=== PATIENT | male | born 1970 | race Caucasian/White ===

== ENCOUNTER 2020-06-12 10:56 | Inpatient (IN) | payer OTHER ==
[~2020-06-12] VITALS: Ht 180.3 cm; Wt 106.1 kg
[2020-06-12 11:56] VITALS: Ht 180.3 cm; Wt 106.1 kg
--- NOTE | 2020-06-12 13:00 | NUR ---
ANCEF INFUSION STARTED AND NS 1 L BOLUS INFUSING WELL. PT LYING IN BED NO DISTRESS WILL MONITOR
[2020-06-12 13:06] LABS: PLATELET COUNT 207 x10^3mcL (130-400); RED CELL DISTRIBUTION WIDTH 13.6 % (11.5-14.5)
[2020-06-12 14:05] LABS: SODIUM SERUM 130 mmol/L (136-145)
[2020-06-12 14:06] LABS: ALBUMIN 2.7 g/dL (3.4-5.0); CALCIUM 9.3 mg/dL (8.5-10.1); CARBON DIOXIDE 22.9 mmol/L (21-32); CHLORIDE SERUM 95 mmol/L (98-107); GFR1 > 60 mL/min; GLUCOSE SERUM 379 mg/dL (74-106); POTASSIUM SERUM 3.7 mmol/L (3.5-5.1); TOTAL PROTEIN, SERUM 7.8 g/dL (6.4-8.2)
[2020-06-12 14:07] LABS: ALKALINE PHOSPHATASE 123 U/L (46-116); ALT/SGPT 17 U/L (16-63); AST/SGOT 5 U/L (15-37)
--- NOTE | 2020-06-12 14:22 | NUR ---
PT BACK FROM XRAY. DR KRAUSE AT BEDSIDE DISCUSSING POC WITH PT. PT AGREES TO BEING ADMITTED FOR FURTHER CARE
[2020-06-12 14:46] LABS: MONOCYTE 9.1 % (0-7); SEGMENTED NEUTROPHILS 83.7 % (37-75); rbc morphology (normal/abnorm) NORMAL (NORMAL)
--- NOTE | 2020-06-12 15:57 | NUR ---
PORTABLE CXR AT BEDSIDE AT THIS TIME
--- NOTE | 2020-06-12 16:12 | NUR ---
PT TO CT AT THIS TIME VIA STEPHANIE
[2020-06-12 16:38] LABS: CHOLESTEROL/HDL RATIO 3.6
[2020-06-12 16:40] LABS: FREE T4 1.28 ng/dL (0.76-1.46); FREE THYROXINE INDEX 2.6 ug/dL (1.4-4.5); T4(THYROXINE) 6.5 ug/dL (4.7-13.3)
[2020-06-12 16:44] LABS: T3 TOTAL 0.55 ng/mL
--- NOTE | 2020-06-12 17:56 | NUR ---
DINNER TRAY GIVEN TO PT, SITTING IN POSITION OF COMFORT EATING WITH NO PROBLEM. TACHY AT 120-135, PT IN NO DISTRESS.
--- NOTE | 2020-06-12 18:13 | NUR ---
PT COMPLETED ATE 100% OF HIS MEAL
--- NOTE | 2020-06-12 18:21 | NUR ---
RECIEVED REPORT FROM ARUNA POPE RN.
--- NOTE | 2020-06-12 18:22 | NUR ---
REPORT GIVEN TO EDISON MESA IN TELE FLOOR RESUMING CARE OF PT
--- NOTE | 2020-06-12 18:45 | NUR ---
PT TRANSPORTED TO TELE FLOOR VIA GURNEY ON PORTABLE CM NO DISTRESS. VSS IV SITE PATENT. EDISON MESA RESUMING CARE OF PT, WILL CONTINUE TO INFUSE NS AT 150ML/HR NOTED IN SEP.
[2020-06-12 18:56] VITALS: BP 145/90
--- NOTE | 2020-06-12 19:49 | NUR ---
CALLED PHARMACY TO INFORM THAT ANCEF IS NOT AVAILABLE IN [facility] AND MEDICATION NEEDS TO BE BROUGHT UP AND THERE IS A DOSE DUE AT 1900. PER PHARMACY, MEDICATION WILL BE BROUGHT UP OFELIA.
[2020-06-12 21:17] VITALS: BP 102/56
[2020-06-12 21:46] VITALS: BP 102/56
--- NOTE | 2020-06-12 22:03 | NUR ---
RECEIVED PT FROM ER, PT ADMIT FOR SEPSIS, LEFT THIGH CELLULITIS, PT IS A/O X4, VERBAL RESPONSIVE. LUNG SOUND CLEAR BILATERAL, NO COUGH, NO SOB. PT IS ON TELE 41, ST, DENY ANY CHEST PAIN OR DISCOMFORT, BOWEL SOUND PRESENT ALL 4 QUADRANTS, NO DISTENTION, NO TENDER. PEDAL PULSE PRESENT BOTH FEET, NO EDEMA, LEFT THIGH RED, SWELLING AND HARD TO TOUCH, C/O MILD PAIN AT THIS MOMENT, IV AT LEFT AC, NO LEAKING, NO INFILTRATION. ALL ADLS ASSIST, ALL NEED MET, CALL LIGHT IN REACH, WILL CONTINUE TO MONITOR.
--- NOTE | 2020-06-13 00:04 | NUR ---
PT IS RESTING IN BED AWAKE AND ALERT. TOLERATING IV ABX WELL. NO C/O PAIN OR DISCOMFORT AT THIS TIME. REMAINS IN STABLE CONDITION. BED IN LOWEST POSITION. CALL LIGHT IS W/IN REACH. WILL CONTINUE TO MONITOR.
--- NOTE | 2020-06-13 03:09 | NUR ---
SPOKE TO DR. DEE AND INFORMED HER THAT PT NEEDS DIET ORDER FOR BREAKFAST. PER DR. DEE, SHE WILL TAKE A LOOK AND CHANGE ORDER NECESSARY.
[2020-06-13 05:03] VITALS: BP 158/86
--- NOTE | 2020-06-13 06:19 | NUR ---
PT IS RESTING IN BED AWAKE AND ALERT. NO C/O PAIN OR DISCOMFORT AT THIS TIME. REMAINS IN STABLE CONDITION. VSS. NO SIGNIFICANT CHANGES AT THIS TIME. FEVER HAS BEEN RESOLVED TEMPERATURE IS NOW 98.4. BED IN LOWEST POSITION. CALL LIGHT IS W/IN REACH. WILL ENDORSE TO DAY SHIFT NURSE.
--- NOTE | 2020-06-13 07:15 | NUR ---
PT. RECEIVED IN BED ALERT AND ORIENTED*4. CARE ASSURED.NO ACUTE DISTRESS NOTED.RIGHT THIGH CELLULITIES NOTED,WARM, SWOLLEN AND TENDER TO TOUCH.NO SOB NOTED,ON ROOM AIR.NSR ON THE MONITOR.VOIDS VIA BRP.SKIN WARM AND DRY TO TOUCH WITH NOTED REDNESS ON RIGHT THIGH.VSS.AFEBRILE.NEEDS ARE BEING MET. CALL LIGHT WITHIN REACH.
[2020-06-13 07:44] LABS: CALCIUM 8.5 mg/dL (8.5-10.1); CARBON DIOXIDE 22.6 mmol/L (21-32); CHLORIDE SERUM 99 mmol/L (98-107); CREATININE SERUM 0.8 mg/dL (0.7-1.3); GFR1 > 60 mL/min; GLUCOSE SERUM 227 mg/dL (74-106); POTASSIUM SERUM 3.4 mmol/L (3.5-5.1); SODIUM SERUM 132 mmol/L (136-145)
[2020-06-13 07:45] LABS: PLATELET COUNT 213 x10^3mcL (130-400); RED CELL DISTRIBUTION WIDTH 12.5 % (11.5-14.5)
[2020-06-13 08:24] VITALS: BP 146/91
[2020-06-13 12:22] LABS: MONOCYTE 12.5 % (0-7); SEGMENTED NEUTROPHILS 75.7 % (37-75); rbc morphology (normal/abnorm) NORMAL (NORMAL)
[2020-06-13 13:35] VITALS: BP 152/86
--- NOTE | 2020-06-13 15:26 | NUR ---
PT SLEEPING QUIETLY IN BED.NO ACUTE DISTRESS NOTED.NEEDS ARE BEING MET.VSS.AFEBRILE. BED IN LOW SAFE POSITION.CALL LIGHT WITHIN REACH.
--- NOTE | 2020-06-13 17:00 | NUR ---
PT. RESTING QUIETLY IN BED.NO ACUTE DISTRESS NOTED.S/P I&D LEFT THIGH @ BEDSIDE.SITE WITH INTACT DRESSING,NO BLEEDING NOTED.VSS.AFEBRILE.NEEDS ARE BEING MET.BED IN LOW SAFE POSITIUON.CALL LIGHT @ REACH.
[2020-06-13 17:48] VITALS: BP 148/86
--- NOTE | 2020-06-13 20:06 | NUR ---
PT RECIEVED AAO REG RESP NO SOB R/A SAT 97%.IV INFUSING WEEL WITH THE SITE PATENT AND INTACT,DRESSING TO THE LT THIGH WHICH CDI AND THE LT KNEE SWOLLEN,PULSES ARE PALPABLE TO ALL EXTRE AND PATIENT ABLE TO MOVE EXTRE,PT ON TELE MONITOR AND IN NSR NO ECTOPY OR CHEST PAIN AT THIS TIME,CALL LIGHT EASY RAECHED AND WILL CONTINUE TO MONITOR.
[2020-06-13 20:11] VITALS: BP 145/81
[2020-06-14 05:21] VITALS: BP 146/83
--- NOTE | 2020-06-14 06:12 | NUR ---
PT HAD A RESTING NIGHT NO CHANGE AT THIS TIME,WILL CONTINUE TO MONITOR.
[2020-06-14 07:13] LABS: CALCIUM 8.3 mg/dL (8.5-10.1); CARBON DIOXIDE 23.6 mmol/L (21-32); CHLORIDE SERUM 101 mmol/L (98-107); CREATININE SERUM 0.7 mg/dL (0.7-1.3); GFR1 > 60 mL/min; GLUCOSE SERUM 156 mg/dL (74-106); MAGNESIUM 1.8 mg/dL (1.8-2.4); PHOSPHOROUS 2.6 mg/dL (2.5-4.9); POTASSIUM SERUM 3.6 mmol/L (3.5-5.1); SODIUM SERUM 134 mmol/L (136-145)
[2020-06-14 07:23] LABS: BASOPHIL % 0.1 % (0-2); PLATELET COUNT 231 x10^3mcL (130-400); RED CELL DISTRIBUTION WIDTH 13.7 % (11.5-14.5)
--- NOTE | 2020-06-14 08:00 | NUR ---
pt. received in bed alert and oriented*4.sleeping but awaken to voice.care assured.pt. denies any pain to left thigh.s/p I&D yesterday with dressing intact on site.even and unlabored breaths.on room air, satting 96%.nsr on the monitor.active bowels.skin warm and dry.voids via brp.vss.afebrile.call light within reach.
[2020-06-14 08:50] VITALS: BP 105/81; BP 122/76
[2020-06-14 11:58] VITALS: BP 128/77
[2020-06-14 16:08] VITALS: BP 139/77
--- NOTE | 2020-06-14 19:59 | NUR ---
PT WAS JUANJO WHITT AND WILL CONTINUE TO MONITOR
[2020-06-14 20:51] VITALS: BP 135/88
--- NOTE | 2020-06-14 21:52 | NUR ---
PT RECIEVED AAO REG RESP NO SOB ABDO IS SOFT WITH ACTIVE BOWEL SOUNDS,PT HAS DRESSING TO THE RT THIGH INTACT,PT ON TELE MONITOR IN NSR NO ECTOPY OR CHEST PAIN AT THIS TIME,BED IN THE LOW POSITION AND LOCKED,KEPT CLEAN AND DRY TO TOUCH AND WILL CONTINUE TO MONITOR.
[2020-06-15 05:50] VITALS: BP 135/87
--- NOTE | 2020-06-15 06:25 | NUR ---
PT HAD A RESTING NIGHT NO CHANGE AT THIS TIME,WILL CONTINUE TO MONITOR.
[2020-06-15 08:13] VITALS: BP 153/93
[2020-06-15 12:45] VITALS: BP 147/86
[2020-06-15 17:22] VITALS: BP 144/89
--- NOTE | 2020-06-15 19:13 | NUR ---
RECEIVED PATIENT. PATIENT IS RESTING. NO SIGN OD DISTRESS. PATIENT C/O 8.5/10 PAIN WILL ADMINISTER TORADOL IV (SEE MAR). SINUS TACHY HEART RHYTHM. PULSES ARE PALPABLE. IV CLEAN AND INTACT LEFT WRIST. CALL LIGHT WITHIN REACH AND BED IN LOW POSITION.
[2020-06-15 20:14] VITALS: BP 139/78
--- NOTE | 2020-06-16 02:59 | NUR ---
PATIENT IS RESTING IN BED. PATIENT DENIES PAIN. NO SIGN OF DISTRESS. BED IN LOW POSITION AND CALL LIGHT WITHIN REACH.
--- NOTE | 2020-06-16 04:09 | NUR ---
PT C/O PAIN 8 TO LEFT THIGH TORADOL GIVEN. NO RESP DISTRESS NOTED.
[2020-06-16 05:39] VITALS: BP 150/90
--- NOTE | 2020-06-16 06:46 | NUR ---
PATIENT IS RESTING IN BED. PATIENT DENIES PAIN AT THIS TIME. NO SIGN OF DISTRESS IS NOTED. BED IN LOW POSITION AND CALL LIGHT WITHIN REACH. WILL GIVE REPORT TO AM NURSE.
[2020-06-16 06:56] LABS: BASOPHIL % 0.3 % (0-2); PLATELET COUNT 320 x10^3mcL (130-400); RED CELL DISTRIBUTION WIDTH 12.9 % (11.5-14.5)
[2020-06-16 07:27] LABS: CALCIUM 8.4 mg/dL (8.5-10.1); CARBON DIOXIDE 24.9 mmol/L (21-32); CHLORIDE SERUM 99 mmol/L (98-107); CREATININE SERUM 0.8 mg/dL (0.7-1.3); GFR1 > 60 mL/min; GLUCOSE SERUM 160 mg/dL (74-106); POTASSIUM SERUM 3.8 mmol/L (3.5-5.1); SODIUM SERUM 135 mmol/L (136-145)
--- NOTE | 2020-06-16 07:45 | NUR ---
RECEIVED PT. IN BED A/A/O X3. NO SOB, NO N/V NOTED. PT. DENIES ANY PAIN AT THIS TIME. PT. IS ON IVF NS RUNNING AT 100 CC/HR. VIA IV SITE AT L WRIST. BED IN LOW POS., CALL LIGHT WITHIN REACH. SIDE RAILS UP X3.
[2020-06-16 08:39] VITALS: BP 143/90
[2020-06-16 10:29] LABS: C REACTIVE PROTEIN 23.9 mg/dL (<=0.9)
[2020-06-16 11:48] LABS: ERYTHROCYTE SED RATE 114 mm/hr (0-15)
[2020-06-16 12:10] VITALS: BP 154/91
[2020-06-16 16:22] VITALS: BP 151/92
--- NOTE | 2020-06-16 17:09 | NUR ---
At 1645 took glucose accu check 204, Ellie MESA charge nurse notified. Student nurse Marjan Flower
--- NOTE | 2020-06-16 19:30 | NUR ---
RECEIVED PT FROM DAY SHIFT RN. A&OX 4, DENIES CHEST PAIN OR DISCOMFORT, DENIES N/V, DENIES SOB, LUNGS SOUNDS CLEAR BILATERAL. BOWEL SOUNDS ACTIVE ALL 4 QUAS. ABDOMEN SOFT AND NONTENDER. IV LEFT FA INTACT AND PATENT, IV FLUIDS RUNNING WELL. LEFT THIGHT DRESSING DRY AND INTACT NOTED. INSTRUCTED PT TO USE CALL LIGHT AND PHONE WHEN NEEDS ASSISTANCE. CALL LIGHT WITHIN REACH. BED IN LOWER POSITION. WILL CONTINUE TO MONITOR PT.
--- NOTE | 2020-06-16 19:34 | NUR ---
REMAINS IN STABLE CONDITION AT THIS TIME. WILL CONTINUE TO MONITOR.
[2020-06-16 19:48] VITALS: BP 133/78
--- NOTE | 2020-06-17 00:05 | NUR ---
PT C/O LEFT KNEE PAIN 01/14, REQUESTED MEDICATION FOR PAIN. TORADOL 30MG/1ML IV PRN GIVEN. INSTRUCTED PT THE POSSIBILITY OF SIDE EFFECTS. SAFETY MEASURES ARE IN PLACE, WILL REASSESS AND MONITOR PT.
--- NOTE | 2020-06-17 06:49 | NUR ---
PT RESTED WELL DURING SHIFT. NO ACUTE CHANGES NOTED DURING SHIFT. SAFETY MEASURS ARE IN PLACE. ALL QUESTIONS AND NEEDS MET. CALL LIGHT WITHIN REACH. WILL ENDORSE CARE TO ONCOMING RN.
--- NOTE | 2020-06-17 06:59 | NUR ---
PT RESTED WELL DURING SHIFT. NO ACUTE CHANGES DURING SHIFT. PT C/O DISCOMFORT AT RIGHT AC IV LINE. RESTARTED NEW IV ON L AC, IV SITE INTACT AND PATENT. ELIZABETH DRAINS IN PLACE, INTACT AND PATENT. DRESSING CHANGING ON ELIZABETH SITE. ELIZABETH DRAINS 490 ML DURING SHIFT. PT DENIES CHEST PAIN OR DISCOMFORT AT THIS TIME. O2 2L/NC. SAFETY MEASURES ARE IN PLACE, WILL ENDORSE CARE TO ONCOMING RN.
[2020-06-17 07:22] LABS: CARBON DIOXIDE 26.6 mmol/L (21-32); CHLORIDE SERUM 103 mmol/L (98-107); GFR1 > 60 mL/min; GLUCOSE SERUM 164 mg/dL (74-106); POTASSIUM SERUM 3.7 mmol/L (3.5-5.1); SODIUM SERUM 139 mmol/L (136-145)
--- NOTE | 2020-06-17 07:55 | NUR ---
RECEIVED PT FROM PRACTICE MANAGERS NURSE. PT RESTING IN BED, AOX4, RESP E/U ON RA. C/O OF MILD SORENESS TO LLE, NON-PITTING EDEMA AND ERYTHEMA NOTED, 4X4 GAUZE TO L THIGH CDI. PAIN TOLERABLE TO PT AT THIS TIME, NO REQUEST FOR PAIN MEDS. COMFORT MEASURES IMPLEMENTED. ON TELE 41 SHOWING NSR. IV TO LFA W/ NO SIGNS OF INFILTRATION, IVF INFUSING WELL. BED IN LOWEST POSITIONING AND CALL LIGHT WITHIN REACH. WILL CONTINUE TO MONITOR.
[2020-06-17 08:19] VITALS: BP 126/94
--- NOTE | 2020-06-17 11:59 | NUR ---
PT RESTING IN BED, AOX4, RESP E/U ON RA. C/O L LEG PAIN RATED 9/10. ADMINISTERED TORADOL IVP ORDERED PER EMAR. COMFORT MEASURES IMPLEMENTED. BED IN LOWEST POSITION AND CALL LIGHT WITHIN REACH. WILL CONTINUE TO MONITOR.
[2020-06-17 12:14] VITALS: BP 159/87
[2020-06-17 14:08] LABS: PLATELET COUNT 354 x10^3mcL (152-348); RED CELL DISTRIBUTION WIDTH 13.9 % (12.1-16.2)
--- NOTE | 2020-06-17 17:00 | NUR ---
ASSUMED CARE OF PATIENT FROM REEMA MESA AT THIS TIME. PATIENT SITTING UP IN BED, ALERT AND ORIENTED. IVF INFUSING WELL, SITE PATENT. DRESSING C/D/I ON LEFT THIGH. PATIENT TO BE NPO AFTER MIDNOC FOR POSS PROCEDURE TOMORROW. NO ACUTE DISTRESS NOTED.
--- NOTE | 2020-06-17 17:45 | NUR ---
PATIENT C/O LEFT THIGH PAIN 7/10 ON THE PAIN SCALE. MEDICATED WITH TYLENOL PO AT THIS TIME. WILL CONTINUE TO MONITOR.
--- NOTE | 2020-06-17 19:43 | NUR ---
RECEIVED PT FROM DAY SHIFT NURSE. RR EVEN AND UN LABORED. A&O X4. NO ADN. BED LOCKED AND LOWERED. CALL LIGHT WITHIN REACH. WILL CONTINUE WITH PALN OF CARE.
[2020-06-17 20:11] VITALS: BP 153/92
--- NOTE | 2020-06-17 21:07 | NUR ---
RECIEVED VANCO TROUGH LEVEL OF 14.6 FROM LAB. ALERTED PHAMACY. ADVISED TO CONTINUE TX.
[2020-06-18 04:49] VITALS: BP 151/88
[2020-06-18 07:07] LABS: BASOPHIL % 0.5 % (0.2-1.5); RED CELL DISTRIBUTION WIDTH 13.7 % (12.1-16.2)
--- NOTE | 2020-06-18 07:10 | NUR ---
RECEIVED PT FROM [facility] ASSISTANT DIRECTOR NURSE. PT RESTING IN BED, AOX4, RESP E/U ON RA. C/O OF MOD L LEG PAIN AT BUT TOLERABLE. OR STAFF AT BEDSIDE TO TAKE PT DOWN FOR I AND D. WILL F/U W/ PT AFTER PROCEDURE.
--- NOTE | 2020-06-18 07:39 | NUR ---
PT SLEEPING IN BED. RR EVEN AND UNLABORED. NO ADN. BED LOCKED AND LOWERED. CALL LIGHT WITHIN REACH. WILL ENDORSE TO DAY SHIFT NURSE.
[2020-06-18 07:43] LABS: PLATELET COUNT 442 x10^3mcL (152-348)
[2020-06-18 07:51] LABS: CARBON DIOXIDE 25.8 mmol/L (21-32); CHLORIDE SERUM 101 mmol/L (98-107); CREATININE SERUM 0.9 mg/dL (0.7-1.3); GFR1 > 60 mL/min; GLUCOSE SERUM 201 mg/dL (74-106); POTASSIUM SERUM 4.2 mmol/L (3.5-5.1); SODIUM SERUM 138 mmol/L (136-145)
--- NOTE | 2020-06-18 10:51 | NUR ---
P.T. NOTES HOLD P.T. EVAL, Pt HAS HOSPITAL PROCEDURE; FF UP WHEN ABLE.
--- NOTE | 2020-06-18 11:01 | NUR ---
PT BACK FROM PROCEDURE. I AND D TO L THIGH W/ WOUND VAC PLACEMENT DONE. WOUND VAC DRESSING AND CIPRIANO WRAP CDI, LEG IMMOBILZER IN PLACE. PT AOX4, RESP E/U ON 2L NC, SPO2: 96%, DENIES SOB OR PAIN AT THIS TIME. VS STABLE. BED IN LOWEST POSITION AND CALL LIGHT WITHIN REACH. WILL CONTINUE TO MONITOR.
[2020-06-18 12:04] VITALS: BP 149/93
--- NOTE | 2020-06-18 12:57 | NUR ---
PT RESTING IN BED, AOX4, RESP E/U ON RA. DENIES PAIN AT THIS TIME. NO ACUTE DISTRESS NOTED. BED IN LOWEST POSITION AND CALL LIGHT WITHIN REACH. WILL CONTINUE TO MONITOR.
[2020-06-18 16:15] VITALS: BP 135/88
--- NOTE | 2020-06-18 18:10 | NUR ---
PT IN BED HAVING DINNER, AOX4, RESP E/U ON RA. DENIES PAIN AT THIS TIME. DRESSING TO LLE CDI, LEG IMMOBILIZER IN PLACE, WOUND VAC SECURED/INTACT. IV TO LFA PATENT/INTACT, WNL. BED IN LOWEST POSITION AND CALL LIGHT WITHIN REACH. WILL ENDORSE TO ONCOMING NURSE.
[2020-06-18 19:23] VITALS: BP 112/88
--- NOTE | 2020-06-18 19:45 | NUR ---
RECIEVED PT DROM DAY SHIFT NURSE. RRE EVEN AND UNLABORED. PT ON RA. SAT 99%. PT STATES HE HAS LT LEG PAIN 01/14, WILL MEDICATE PER EMAR. A&O X4. BED LOCKED AND LOWERED. CALL LIGHT WITHIN REACH. WILL CONTINUE WITH PLAN OF CARE.
[2020-06-19 05:27] VITALS: BP 139/86
--- NOTE | 2020-06-19 07:10 | NUR ---
RECEIVED PT FROM CIRCUITRY NEGATIVE INSPECTOR NURSE. PT IN BED SLEEPING, AROUSABLE, RESP E/U ON RA. NO SIGNS OF ACUTE DISTRESS NOTED. ON TELE 41 SHOWING NSR, HR: 69. IV TO LFA PATENT/INTACT, WNL. WOUND VAC TO LLE SECURED/INTACT AT 125 MMHG, DRESSING AND IMMOBILZER TO LLE CDI. BED IN LOWEST POSITION AND CALL LIGHT WITHIN REACH. WILL CONTINUE TO MONITOR.
[2020-06-19 07:15] LABS: BASOPHIL % 0.3 % (0.2-1.5); RED CELL DISTRIBUTION WIDTH 13.6 % (12.1-16.2)
--- NOTE | 2020-06-19 07:24 | NUR ---
PT SLEEPING IN BED. NO ADN. WILL ENODRSE TO DAY SHIFT NURSE.
[2020-06-19 07:41] LABS: PLATELET COUNT 435 x10^3mcL (152-348)
[2020-06-19 08:53] LABS: CALCIUM 8.5 mg/dL (8.5-10.1); CARBON DIOXIDE 24.9 mmol/L (21-32); CHLORIDE SERUM 104 mmol/L (98-107); CREATININE SERUM 0.8 mg/dL (0.7-1.3); GFR1 > 60 mL/min; GLUCOSE SERUM 173 mg/dL (74-106); MAGNESIUM 2.2 mg/dL (1.8-2.4); POTASSIUM SERUM 3.5 mmol/L (3.5-5.1); SODIUM SERUM 139 mmol/L (136-145)
[2020-06-19 09:28] VITALS: BP 133/84
--- NOTE | 2020-06-19 12:31 | NUR ---
PT RESTING IN BED, AOX4, RESP E/U ON RA. C/O LLE PAIN RATED 8/10. ADMINISTERED TORADOL IVP ORDERED PER EMAR. COMFORT MEASURES IMPLEMENTED. WILL CONTINUE TO MONITOR.
[2020-06-19 12:54] VITALS: BP 151/93
[2020-06-19 17:18] VITALS: BP 142/84
--- NOTE | 2020-06-19 18:35 | NUR ---
PT RESTING IN BED, AOX4, RESP E/U ON RA. DENIES LLE PAIN AT THIS TIME. NO ACUTE DISTRESS NOTED. DRESSING TO LLE CDI, IMMOBILZER IN PLACE, WOUND VAC SECURED/INTACT. IV TO LFA PATENT/INTACT, WNL. BED IN LOWEST POSITION AND CALL LIGHT WITHIN REACH. WILL CONTINUE TO MONITOR.
--- NOTE | 2020-06-19 19:51 | NUR ---
RECIEVED PT FROM DAY SHIFT NURSE. RR EVEN AND UNLABORED. NO ADN. WILL CONTINUE WITH PLAN OF CARE.
[2020-06-19 19:57] VITALS: BP 108/74
[2020-06-20 05:50] VITALS: BP 158/87
--- NOTE | 2020-06-20 07:41 | NUR ---
PT RESTING IN BED. RR EVEN AND UNLABORED. A&O X4. NO ADN. BED LOCKED AND LOWERED. CALL LIGHT WITHIN REACH. WILL CONTINUE WITH PLAN OF CARE.
[2020-06-20 08:12] LABS: BASOPHIL % 0.6 % (0.2-1.5); RED CELL DISTRIBUTION WIDTH 13.8 % (12.1-16.2)
[2020-06-20 08:49] VITALS: BP 159/92
[2020-06-20 08:52] LABS: CALCIUM 8.5 mg/dL (8.5-10.1); CARBON DIOXIDE 27.7 mmol/L (21-32); CHLORIDE SERUM 105 mmol/L (98-107); CREATININE SERUM 0.8 mg/dL (0.7-1.3); GFR1 > 60 mL/min; GLUCOSE SERUM 124 mg/dL (74-106); POTASSIUM SERUM 3.9 mmol/L (3.5-5.1); SODIUM SERUM 141 mmol/L (136-145)
[2020-06-20 09:26] LABS: PLATELET COUNT 477 x10^3mcL (152-348)
--- NOTE | 2020-06-20 11:41 | NUR ---
RESUMED CARE OF THIS PT FROM KEV. PT IN NO ACUTE DISTRESS. AWAKE AND ALERT. NO C/O PAIN OR DISCOMFORT AT THIS TIME. CALL LIGHT WITHIN REACH. WILL CONTINUE WITH PLAN OF CARE.
[2020-06-20 12:21] VITALS: BP 159/90
--- NOTE | 2020-06-20 15:00 | NUR ---
PT LEFT TO OR IN NO DISTRESS, AWAKE AND ALERT. VSS
--- NOTE | 2020-06-20 15:42 | NUR ---
1. Continue CCHO diet. 2. Continue to educate patient on CCHO diet as needed
--- NOTE | 2020-06-20 15:42 | NUR ---
Initial Nutrition Assessment: Lisandro Mason 232B Dx: Sepsis secondary to Left thigh cellulitis PMHx: HTN, possible new onset DM PSHx: unknown Labs: 06/19: Glu: 173, HgbA1C: 11.3%, C-RP: 23.9, lipid panel wnl Meds: Nafcillin, metformin, Toradol, lisinopril, lantus, vancomyacin Diet: currently NPO for surgery, was on CCHO diet before PO intake since admission: 80-100% since admission Ht: 180.34cm/71" Wt: 106.14kg/233# BMI: 32.6 kg/m2 Bed scale: 226# IBW: 172# %IBW: 135% UBW: 299# Age: 50 y/o M Food Allergies: NKFA per pt Skin condition: left thigh wound vac, Murray: 21 Edema: LLE +1 edema Last BM: 06/19 Per H&P 50 yo male with no known PMH who presents to the ER from home with complaints of worsening pain on his right thigh. Patient states that on June 06 he suddenly felt pain on his right thigh as if he had "pulled a muscle". He first attributed it to walking up and down the stairs and applied ice as well as heat to the area. However, there was no improvement and in fact, patient states that over the past 2 days his thigh has "doubled in size" and has been extremely painful. He denies trauma to the area, insect bite, or similar episode in the past. He does admit to having fever for 2 days but otherwise denies shortness of breath, chest pain, nausea, vomiting, urinary or bowel problems. s/p I&D left thigh wound vac in place RD Note: spoke with pt at bedside today, pt reports over 67# weight loss in past year and a half by cutting down on his food portions, he was aware that he has been diagnosed with diabetes and appears willing to learn about the diabetic diet. 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 Pt verbalized understanding. Food-drug interactions? Education given? n/a Estimated Nutritional Needs Based on ideal body weight 172#/78.2kg Energy: 6688-3643 kcal/day (25-30 kcal/kg for healthy weight loss) Protein: 94-117 g/day (1.2-1.5 g/kg for wound healing) Fluid: mL/day (1 mL/kcal) Nutrition Diagnosis: 1. Food and nutrition-related knowledge deficit r/t diabetes aeb new onset diabetic with HgbA1C 11.8%. Intervention 1. Continue CCHO diet. 2. Continue to educate patient on CCHO diet as needed. Monitor/Evaluate Goal: PO intake at least 75% of estimated needs Monitor: PO intake, Labs, GI function F/U moderate risk in 3-5 days 06/23-.
--- NOTE | 2020-06-20 16:52 | NUR ---
PT STILL IN OR
--- NOTE | 2020-06-20 18:04 | NUR ---
PT BACK FROM O.R AWAKE, ALERT AND ORIENTED. IN NO RESP. DISTRESS. INCISION SITE WITH DRESSING INTACT. ELIZABETH DRAIN IN PLACE WITH MODERATE S/S DRAINAGE. NO C/O PAIN AT THIS TIME. VS WNL.
[2020-06-20 18:05] VITALS: BP 163/92
--- NOTE | 2020-06-20 19:04 | NUR ---
REMAINS IN NO ACUTE DISTRESS. AWAKE AND ALERT. NO CHANGES IN VS.NO C/O PAIN OR DISCOMFORT AT THIS TIME. IVF INFUSING WELL AND SITE CLEAR. CALL LIGHT WITHIN REACH. WILL BE ENDORSED TO INCOMING SHIFT.
--- NOTE | 2020-06-20 20:04 | NUR ---
PATIENT REPORT MENDY ORTIZ RN. AXOX4 NO S/S OF DISTRESS OR DISCOMFORT. PT BREATHING EVEN AND UNLABORED ON RA, 99% SPO2 CTAB. GEN WEAKNESS. NS RUNNING AT 100ML/HR RFA 20G. TELE 41 ACTIVE BOWELS X4, PATIENT HAS A ELIZABETH L THIGH CIPRIANO WRAPPED CDI WITH IMMOBILIZER. STRONG RADIAL AND PEDAL PULSES. VOIDS FREELY AT BEDSIDE. CALM AND COOPERATIVE WITH CARE. BED IN LOW POSITION, SIDE RAILS UPX2, CALL LIGHT WITHIN REACH. WILL CONTINUE TO MONITOR PATIENT AND OFFER SUPPORT.
[2020-06-20 21:57] VITALS: BP 120/86
--- NOTE | 2020-06-21 00:49 | NUR ---
PATIENT RESTING EYES CLOSED, NO S/S OF DISTRESS OR DISCOMFORT. PATIENT DENIES PAIN AT THIS TIME. BREATHING EVEN AND UNLABORED ON RA. DENIES PAIN AT THIS TIME. WILL CONTINUE TO MONITOR PATIENT AND OFFER SUPPORT.
--- NOTE | 2020-06-21 06:19 | NUR ---
PATIENT RESTING. NO S/S OF DISTRESS. PATIENT C/O LEFT THIGH PAIN. PRN MEDICATION GIVEN ORDERED. PATIENT TOLERATING ABD. ELIZABETH DRAINED AT 3OML SEROSANGUINOUS FLUID. WILL ENDORSE TO NEXT SHIFT.
[2020-06-21 06:29] VITALS: BP 162/94
--- NOTE | 2020-06-21 07:30 | NUR ---
RECEIVED REPORT FROM NIGHT NURSE. PT RESTING IN BED, AAO TIMES 4. RESPIRATIONS EVEN AND UL ON RA. DENIES PAIN AT THIS TIME. SAFETY MEASURES IN PLACE, CALL LIGHT IN REACH.
[2020-06-21 08:00] VITALS: BP 153/85
[2020-06-21 08:15] LABS: BASOPHIL % 0.3 % (0.2-1.5); RED CELL DISTRIBUTION WIDTH 13.9 % (12.1-16.2)
[2020-06-21 08:28] LABS: CALCIUM 8.4 mg/dL (8.5-10.1); CARBON DIOXIDE 25.5 mmol/L (21-32); CHLORIDE SERUM 104 mmol/L (98-107); CREATININE SERUM 0.8 mg/dL (0.7-1.3); GFR1 > 60 mL/min; GLUCOSE SERUM 131 mg/dL (74-106); POTASSIUM SERUM 3.7 mmol/L (3.5-5.1); SODIUM SERUM 139 mmol/L (136-145)
[2020-06-21 10:01] LABS: PLATELET COUNT 536 x10^3mcL (152-348)
[2020-06-21] MEDS ORDERED: DICLOXACILLIN500 MG PO (11:15)
[2020-06-21] MEDS ORDERED: GLU500 PO (11:16)
[2020-06-21] MEDS ORDERED: ZES10 PO (11:16)
[2020-06-21] MEDS ORDERED: KEFLEX500 M1 PO (11:16)
[2020-06-21] MEDS ORDERED: LANTI SQ (11:17)
[2020-06-21] MEDS ORDERED: ULTRAM50 MG PO (11:19)
[2020-06-21] MEDS ORDERED: MEDI-FIRST ASP325 MG PO (11:30)
[2020-06-21] MEDS ORDERED: GOOD SENSE OMEP20 MG PO (11:30)
[2020-06-21 12:13] VITALS: BP 164/100
[2020-06-21 16:10] VITALS: BP 164/100
--- NOTE | 2020-06-21 16:40 | NUR ---
RECEIVED DISCHARGE ORDERS. PRINTED DISCHRCGAE INSTRUCTIONS/PACKET GIVEN AND EXPLAINED TO PATIENT. ALL QUESTIONS ANSWERED AT THIS TIME. PATIENT VERBALIZED UNDERSTANDING OF ALL DISCHARGE INSTRUCTIONS, FOLLOW-UP APPTS. IV SITE REMOVED, CATH INTACT, BANDAID APPLIED, NO BLEEDING NOTED. TAKEN OFF CARDIAC MONITORING. DRESSED AND PREPARED FOR DISCHARGE. PER PATIENT WILL PICK HIM UP.
[2020-06-21 16:49] VITALS: BP 103/53
[2020-06-21 16:53] VITALS: BP 151/89
--- NOTE | 2020-06-21 17:40 | NUR ---
PATIENT DISCHARGED HOME WITH , TAKEN TO VEHICLE VIA WHEELCHAIR BY HELP DESK REPRESENTATIVE. PT LEFT WITH ALL BELONGINGS INCLUDING CELL PHONE, CELL PHONE AUTOMATIC GRINDING MACHINE OPERATOR, CLOTHES AND SHOES.
== END 2020-06-21 17:35 | disposition home or self-care (01) | DRG 853 ==
LOC: ED 10:56 → DU 14:59
PROVIDERS: Family Medicine; Orthopaedic Surgery; Student in an Organized Health Care Education/Training Program; ADMIT Internal Medicine; ATTEND Internal Medicine
PROC: 0J9M0ZZ Drainage of Left Upper Leg Subcutaneous Tissue and Fascia, Open Approach (ICD-10-PCS; 2020-06-18)
PROC: 0J9P0ZZ Drainage of Left Lower Leg Subcutaneous Tissue and Fascia, Open Approach (ICD-10-PCS; principal; 2020-06-18 07:30)
PROC: 0J9P0ZZ Drainage of Left Lower Leg Subcutaneous Tissue and Fascia, Open Approach (ICD-10-PCS; 2020-06-20)
PROC: 0J9M0ZZ Drainage of Left Upper Leg Subcutaneous Tissue and Fascia, Open Approach (ICD-10-PCS; 2020-06-20)
PROC: 0YQ80ZZ Repair Left Femoral Region, Open Approach (ICD-10-PCS; 2020-06-20)
DX: A41.9 Sepsis, unspecified organism (principal); E43 Unspecified severe protein-calorie malnutrition; E87.1 Hypo-osmolality and hyponatremia; L02.818 Cutaneous abscess of other sites; L03.116 Cellulitis of left lower limb; M60.004 Infective myositis, unspecified left leg; R65.20 Severe sepsis without septic shock; I10 Essential (primary) hypertension; E11.65 Type 2 diabetes mellitus with hyperglycemia; Z20.828 Contact with and (suspected) exposure to other viral communicable diseases; Z88.5 Allergy status to narcotic agent; Z83.3 Family history of diabetes mellitus; Z68.30 Body mass index [BMI] 30.0-30.9, adult
CPT/HCPCS: 82962; 83880; 84439; 97116-GP; 97530-GP; C9113; G0378; J0131; J0330; J0690; J1170; J1644; J1815; J1885; J2001; J2250; J2405; J2543; J2704; J2710; J3010; J3370; J3490; J7030; J7050; J7120; Q9967